=== PATIENT | male | born 1985 | race Caucasian/White ===

== ENCOUNTER → 2018-03-19 | Outpatient (CLI) | payer BC ==
[~2018-03-19] MED LIST: CYMBALTA PO; TRAZODONE PO; WELLBUTRIN PO
--- NOTE | 2018-03-19 16:55 | Diagnostic Imaging Report ---
Frontal and lateral views of the chest. HISTORY: Cough COMPARISON: None available. DISCUSSION: Lungs: The lungs are well inflated. No evidence of a consolidative pneumonia or pulmonary alveolar edema. Pleura: No pleural effusion or pneumothorax. Heart and mediastinum: The cardiomediastinal silhouette appears unremarkable. Bones and soft tissues: Appear unremarkable. IMPRESSION: No acute radiographic abnormality. Signed by: Dr. Fausto Jon D.O., M.M.M. on 03/19/2018 4:51 PM
== END ==
LOC: RAD 16:04
PROVIDERS: ATTEND Internal Medicine
DX: J45.41 Moderate persistent asthma with (acute) exacerbation (principal)
CPT/HCPCS: 71046

== ENCOUNTER → 2018-03-26 | Outpatient (CLI) | payer BC ==
--- NOTE | 2018-03-26 17:08 | Diagnostic Imaging Report ---
EXAM: CERVICAL SPINE 4 OR 5 VIEWS DATE: 03/26/2018 4:26 PM INDICATION: Posttraumatic headache COMPARISON: None FINDINGS: Vertebral heights and disc spaces are maintained. No significant degenerative change or fracture identified. No significant osseous foraminal narrowing identified on oblique views. Apices clear. Atlantoaxial region suboptimally evaluated given overlapping osseous structures on odontoid view. IMPRESSION: No acute findings. Signed by: Dr. Alberto Beltran MD on 03/26/2018 5:04 PM
== END ==
LOC: RAD 16:11
PROVIDERS: ATTEND Internal Medicine
DX: G44.309 Post-traumatic headache, unspecified, not intractable (principal); S13.9XXA Sprain of joints and ligaments of unspecified parts of neck, initial encounter
CPT/HCPCS: 72050

== ENCOUNTER → 2018-03-27 | Outpatient (CLI) | payer BC ==
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
== END ==
LOC: CT 15:36
PROVIDERS: ATTEND Internal Medicine
DX: G44.309 Post-traumatic headache, unspecified, not intractable (principal); S13.9XXA Sprain of joints and ligaments of unspecified parts of neck, initial encounter
CPT/HCPCS: 70450

== ENCOUNTER → 2020-08-21 | Outpatient (CLI) | payer BC | LOC: RAD 14:37 | PROVIDERS: ATTEND Internal Medicine | DX: S33.5XXA Sprain of ligaments of lumbar spine, initial encounter (principal); M41.24 Other idiopathic scoliosis, thoracic region | CPT/HCPCS: 72070; 72110; 72220 ==

== ENCOUNTER → 2021-06-06 | Outpatient (CLI) | payer BC | LOC: US 08:58 | PROVIDERS: ATTEND Internal Medicine | DX: R10.10 Upper abdominal pain, unspecified (principal) | CPT/HCPCS: 76700 ==

== ENCOUNTER 2022-11-26 08:20 | Outpatient (RCR) | payer BC | END 2022-12-24 | LOC: PT 08:20 | PROVIDERS: ATTEND Podiatrist Foot & Ankle Surgery | DX: M76.822 Posterior tibial tendinitis, left leg (principal); M62.81 Muscle weakness (generalized); R26.89 Other abnormalities of gait and mobility ==